=== PATIENT | male | born 1985 | race Caucasian/White ===

== ENCOUNTER 2018-12-02 22:14 | Emergency (ER) | payer SELFPAY ==
[~2018-12-02] VITALS: Ht 167.6 cm; Wt 82.0 kg
[2018-12-02 22:24] VITALS: Ht 167.6 cm; Wt 82.0 kg
[2018-12-03] MEDS ORDERED: ALBU8.5H8 INH (00:59)
[2018-12-03] MEDS ORDERED: IBUP800T48 PO (01:00)
[2018-12-03] MEDS ORDERED: TRAM50TA2 PO (01:00)
[2018-12-03] MEDS ORDERED: AMOX500C2 PO (01:00)
--- NOTE | 2018-12-03 01:02 | ERD ---
ER Documentation Chief Complaint Chief Complaint LEFT UPPER DENTAL PAIN X 1 WEEK HPI 32-year-old male who presents with a right upper molar dental pain for 1 week secondary to chipped molar tooth. He has been taking Tylenol which helps temporarily and only a little bit. He has had no fever. He is tolerating oral intake. He has not yet seen a dentist. ROS All systems reviewed and are negative except as per history of present illness. Medications Home Meds Active Scripts Tramadol HCl (Tramadol HCl) 50 Mg Tablet, 50 MG PO Q4 PRN for PAIN, #20 TAB Prov:MARYLIN PEARSON PA-C 12/03/18 Ibuprofen* (Motrin*) 800 Mg Tab, 800 MG PO Q6, #30 TAB Prov:MARYLIN PEARSON PA-C 12/03/18 Amoxicillin* (Amoxicillin*) 500 Mg Cap, 500 MG PO BID for 7 Days, CAP Prov:MARYLIN PEARSON PA-C 12/03/18 Albuterol Sulfate* (Proair HFA*) 8.5 Gm Hfa.aer.ad, 2 PUFF INH Q4, #1 INHALER Prov:PEARSONMARYLIN MALDONADO PA-C 12/03/18 FmHx Family History: No diabetes Physical Exam Vitals Vital Signs Date Temp Pulse Resp B/P (MAP) Pulse Ox O2 O2 Flow FiO2 Time Delivery Rate 12/02/18 97.6 77 16 158/88 98 22:24 (111) Physical Exam Const: No acute distress Head: Atraumatic Eyes: Normal Conjunctiva ENT: Normal External Ears, Nose and Mouth. Chipped right upper molar tooth, no significant surrounding erythema Neck: Full range of motion. No meningismus. Resp: Clear to auscultation bilaterally Cardio: Regular rate and rhythm, no murmurs Procedures/MDM Patient has dental pain secondary to chipped molar tooth. He has not yet seen a dentist. I provided him with outpatient dental referral as well as prescription for ibuprofen and tramadol and antibiotics. Patient counseled regarding my diagnostic impression and care plan. Prior to discharge all questions answered. Pt agrees with treatment plan and understands strict return precautions. Pt is instructed to follow up with primary care provider within 24-48 hours. Precautionary instructions provided including instructions to return to the ER if not improving or for any worsening or changing symptoms or concerns. Departure Diagnosis: Primary Impression: Pain, dental Condition: Stable Patient Instructions: Dental Pain Referrals: [facility] ([facility]) Additional Instructions: Llame al doctor MAANA y cassi hernando STACY PARA DENTRO DE 1-2 ECHOLS.Dgale a la secretaria que nosotros le instruimos hacer esta stacy.Avise o llame si major condicin se empeora antes de la stacy. Regresa aqui si peor o no mejor. MARYLIN PEARSON PA-C Dec 03, 2018 01:02
[2018-12-03 01:43] VITALS: BP 144/90; PULSE 72; RESP 20
== END 2018-12-03 01:47 | disposition home or self-care (01) ==
LOC: FTE 22:14
DX: K08.89 Other specified disorders of teeth and supporting structures (principal)
CPT/HCPCS: 99283